=== PATIENT | male | born 1995 | race Caucasian/White ===

== ENCOUNTER 2017-11-10 18:50 | Emergency (ER) | payer OTHER ==
[~2017-11-10] VITALS: Ht 188 cm; Wt 95.2 kg
[2017-11-10 18:56] VITALS: BP 150/86; Ht 188 cm; Wt 95.2 kg
== END 2017-11-10 20:02 | disposition home or self-care (01) ==
LOC: ED 18:50
DX: L60.0 Ingrowing nail (principal)
CPT/HCPCS: J2001